=== PATIENT | female | born 1980 | race Caucasian/White ===

== ENCOUNTER 2019-08-17 21:59 | Emergency (ER) | payer BC ==
[~2019-08-17] VITALS: Ht 162.6 cm; Wt 81.0 kg
[2019-08-17] MEDS ORDERED: CLON-529 PO (23:06)
[2019-08-17 23:15] VITALS: BP 139/59
== END 2019-08-17 23:25 | disposition home or self-care (01) ==
LOC: ER 23:24
DX: R03.0 Elevated blood-pressure reading, without diagnosis of hypertension (principal); R51 Headache; Z79.899 Other long term (current) drug therapy
CPT/HCPCS: 93005; 99283

== ENCOUNTER 2022-08-18 22:37 | Emergency (ER) | payer SELFPAY ==
[~2022-08-18] VITALS: Ht 162.6 cm; Wt 88.2 kg
[~2022-08-18 22:37] MED LIST: CLON-529 PO
[2022-08-18 22:42] VITALS: BP 151/89
== END 2022-08-19 00:31 | disposition left against medical advice (07) ==
LOC: ER 22:38
DX: S09.90XA Unspecified injury of head, initial encounter (principal); Z53.21 Procedure and treatment not carried out due to patient leaving prior to being seen by health care provider; X58.XXXA Exposure to other specified factors, initial encounter; Y93.89 Activity, other specified; Y92.488 Other paved roadways as the place of occurrence of the external cause; Y99.8 Other external cause status